=== PATIENT | female | born 2000 | race Caucasian/White ===

== ENCOUNTER 2020-03-27 16:11 | Emergency (ER) | payer OTHER ==
[~2020-03-27] VITALS: Ht 160 cm; Wt 95.3 kg
[2020-03-27 16:56] VITALS: BP_SYST 122
[2020-03-27 17:54] VITALS: BP_SYST 122
== END 2020-03-27 17:54 | disposition home or self-care (01) ==
LOC: SED 16:11 → EDBD 16:11 → SED 17:54
DX: Z03.818 Encounter for observation for suspected exposure to other biological agents ruled out (principal)
CPT/HCPCS: 99283; U0003

== ENCOUNTER 2020-05-17 10:59 | Emergency (ER) | payer OTHER, SELFPAY ==
[~2020-05-17] VITALS: Ht 157.5 cm; Wt 98.4 kg
[2020-05-17 11:01] VITALS: BP_SYST 143
[2020-05-17 11:44] VITALS: BP_SYST 143
== END 2020-05-17 11:44 | disposition home or self-care (01) ==
LOC: SED 10:59
DX: M25.561 Pain in right knee (principal)
CPT/HCPCS: 99281

== ENCOUNTER 2020-08-28 10:43 | Emergency (ER) | payer OTHER ==
[~2020-08-28] VITALS: Ht 157.5 cm; Wt 100.2 kg
[2020-08-28 10:56] VITALS: BP_SYST 122
--- NOTE | 2020-08-28 11:00 | NUR ---
Patient triaged and placed in waiting room. VSS and patient appears in no acute distress at this time. Awaiting available bed, and MD notified of need for MSE.
--- NOTE | 2020-08-28 11:39 | NUR ---
Patient to ER bed 3 to gown for evaluation. Side rails up. Report given to ANGELITA Gudino.
--- NOTE | 2020-08-28 11:50 | NUR ---
ER at bedside examining patient.
[2020-08-28 12:25] VITALS: BP_SYST 122
--- NOTE | 2020-08-28 12:26 | NUR ---
Patient given written and verbal discharge instructions and verbalizes understanding. ER MD discussed with patient the results and treatment provided. Patient in stable condition. ID arm band removed. Rx of AMOX given. Patient educated on pain management and to follow up with PMD. Pain Scale 0/10 Opportunity for questions provided and answered. Medication side effect fact sheet provided.
== END 2020-08-28 12:26 | disposition home or self-care (01) ==
LOC: SED 10:43
DX: H66.93 Otitis media, unspecified, bilateral (principal); J45.909 Unspecified asthma, uncomplicated
CPT/HCPCS: 99283